=== PATIENT | female | born 1970 | race Caucasian/White ===

== ENCOUNTER → 2017-06-22 | Outpatient (CLI) | payer BC ==
[~2017-06-22] VITALS: Ht 165.1 cm; Wt 72.5 kg
[~2017-06-22] MED LIST: ACYCLOVIR 400400 MG PO; AMOXICILLIN; CARISOPRODOL 3350 MG PO; CLARITIN10 MG PO; EVAMIST8.1 ML; MOBIC15 MG PO; NORCO 5-325 TA1 EACH PO; PREDNISONE 10 M10 MG PO; PREDNISONE 20 M20 MG PO; TRAMADOL 50 MG50 MG PO; VALTREX 500 MG500 M1 PO; VALTREX1000 MG PO; VITAMIN D400 UNIT PO; ZYRTEC10 M5 PO
--- NOTE | ~2017-06-22 | HPC ---
[facility] [place] [address] PAIN MANAGEMENT CONSULTATION Name: JALEN HENDRICKS [facility] #: [facility] [id number] Admission: 06/22/17 Attend Phys: Pete Morejon DO Discharge: Date of : 66 Report #: [id number] THIS REPORT FOR: //name// CC: Sonam Morejon The patient is a 46-year-old female, prior seen back in November for radiofrequency lesioning right L5, S1, S2 intervening the right SI joint. The patient had good relief yet transient with SI joint injections. We had referred the patient to [facility] for consideration for percutaneous right SI fusion. Unfortunately, her insurance company denied this. The patient to her credit diligently worked through the appeal process and yet was continued to be denied. Fortunately, the has helped some with her right low back pain. She presents to pain clinic today with a new complaint. The patient had surgery on right foot for plantar fasciitis, she notes that the plantar fasciitis has been an issue for several years, but it got worse in the past few months. She had failed conservative therapy including orthotics and steroid injections. Ultimately on March 29, she had surgery, healed nicely, but now has exquisite pain, point tender over the heel in the right foot. Does have some pain along the lateral aspect of the foot and some paresthesia. She was referred to the pain clinic for consideration for RSD right lower extremity. The patient presents to the pain clinic today, she notes the pain as 2 on a VAS, though does get quite problematic with walking. She notes it wakes her up from sleep. She describes shooting, dull, non-throbbing pain. Again, it wakes her up from sleep, but is also exacerbated with sitting and walking. PHYSICAL EXAMINATION: Shows 26.6 kilograms, 46-year-old female. Blood pressure 110/72, pulse 76, respirations 16. Rises from chair using armrest. Modestly antalgic gait. Still little tender over the right SI though I am pleased that the RFL is still providing some relief here. Gait is modestly antalgic. She has good peripheral pulses, posterior tibial and dorsal pedal. Range of motion in the ankle is good. Does have some hyperpathia and allodynia in the foot, though nothing that I would consider compatible with RSD. No true light touch allodynia. The skin is warm. There are no changes. There are no changes. RECOMMENDATIONS: Long discussion with the patient today about therapeutic options. I believe she does have some nerve mediated pain, perhaps irritation from the surgery. We will start the patient on low dose Lyrica, I gave her samples of 50 and 75 mg tablets, to start at 50 mg at bedtime, gradually titrating to 75 and then total of 100 mg. I will see her back in 3 weeks for reevaluation. I will evaluate efficacy of medications. We may consider a [address] [place] [address] PAIN MANAGEMENT CONSULTATION Name: MILTONESTELITA DELA CRUZELLE Marcelo Room #: REG [facility] LILIA Martel#: [id number] Admission: 06/22/17 Attend Phys: Pete Morejon DO Discharge: Date of : 66 Report #: [id number] lumbar sympathetic block if symptoms appear to manifest more as RSD at that time. Thank you for allowing me to participate in the patient's care. Today, she was seen for approximately 25 minutes from 9:50-10:15 a.m. Greater than 50% of this time spent reviewing therapeutic options and counseling the patient. By: [id number] Pete Morejon DO /nt
[2017-06-22 09:50] VITALS: BP 110/72
== END | disposition home or self-care (01) ==
LOC: PAIN 07:01
DX: M54.5 Low back pain (principal); Z98.890 Other specified postprocedural states; M72.2 Plantar fascial fibromatosis; G90.521 Complex regional pain syndrome I of right lower limb

== ENCOUNTER → 2017-07-10 | Outpatient (CLI) | payer BC ==
[~2017-07-10] VITALS: Ht 162.6 cm; Wt 73.0 kg
[~2017-07-10] MED LIST changes: +LYRICA100 MG PO; +NAPROSYN500 MG PO; +SINGULAIR 10 MG10 M1 PO; +ZANTAC 150MG T150 MG PO
--- NOTE | ~2017-07-10 | HPC ---
[facility] [address] [address] PAIN MANAGEMENT CONSULTATION Name: JALEN HENDRICKS Room #: REG [facility] [id number] Admission: 07/10/17 Attend Phys: Pete Morejon DO Discharge: Date of : 66 Report #: [id number] THIS REPORT FOR: //name// CC: Sonam Morejon DATE OF SERVICE: 07/10/2017 The patient is a pleasant 46-year-old female, long treated for SI joint pain, recently had exacerbation of right foot pain. She had surgery in her right foot in March for plantar fasciitis. She has had significant pain since that time. The sole of her foot hurts with foot strike. At night, she has a burning dysesthesia in the medial aspect of the ankle. Sometimes, she has pain at top of the mid foot medial aspect. We had increased Lyrica from 50 mg to 100 mg at bedtime with nominal efficacy. He returns to pain clinic today noting again pain continues at right foot. She is wearing a shoe, but she describes burning, dull numbness, rates it a 3 on a VAS. Physical exam is fairly unremarkable. She does not have hyperpathia or allodynia. Two-point discrimination is symmetric, but even has a little bit of numbness in the bottom aspect of the leg. No light touch allodynia. ASSESSMENT: Neuropathic pain, right lower extremity. I do not think this is reflex sympathetic dystrophy or complex regional pain syndrome, but certainly is neurogenic-mediated pain following the surgery. RECOMMENDATION: Long discussion with the patient about therapeutic options. Ultimately, we have elected to try pushing the gabapentin dose to target of 200 mg, she has samples of both 50 and 75 mg tablets. We will continue 100 mg at bedtime (prescription for Lyrica 100 mg b.i.d. #60 tablets given). We will have her start by taking 50 mg in morning and 100 at night for 3 days; 75 mg in the morning and 100 at night for 3 days with a target dose 100 mg b.i.d. Follow up in 30 days to evaluate efficacy. Again, if this does not afford adequate relief, we may consider sympathetic block versus spinal cord stimulator, though I would certainly want to wait 6-12 months after the surgery before we consider anything as invasive as a surgical implant, i.e. spinal cord stimulator. Discharged in good and stable condition. By: [id number] Pete Morejon DO /nt
[2017-07-10 09:59] VITALS: BP 115/73
== END | disposition home or self-care (01) ==
LOC: PAIN 07:10
DX: G62.9 Polyneuropathy, unspecified (principal); M53.3 Sacrococcygeal disorders, not elsewhere classified; M79.671 Pain in right foot

== ENCOUNTER → 2019-03-11 | Outpatient (CLI) | payer BC ==
[~2019-03-11] MED LIST changes: +NEURONTIN 300300 M1 PO
[2019-03-11 14:03] LABS: ALBUMIN 4.2 g/dL (3.4-5.0); CALCIUM 9.2 mg/dL (8.5-10.1); CREATININE 0.9 mg/dL (0.6-1.0); POTASSIUM 4.5 mmol/L (3.5-5.1); TOTAL BILIRUBIN 0.3 mg/dL (<0.1-1.0); TOTAL PROTEIN 7.4 g/dL (6.4-8.2)
[2019-03-11 14:45] LABS: TSH 1.588 uIU/mL (0.358-3.740)
== END ==
LOC: MRI 10:56
PROVIDERS: Psychiatry & Neurology Neuromuscular Medicine
DX: G51.8 Other disorders of facial nerve (principal); R90.82 White matter disease, unspecified; Z86.69 Personal history of other diseases of the nervous system and sense organs